=== PATIENT | male | born 1970 | race Caucasian/White ===

== ENCOUNTER 2022-12-24 07:07 | Day surgery (SDC) | payer OTHER ==
[~2022-12-24] VITALS: Ht 180.3 cm; Wt 80.7 kg
[2022-12-24 11:22] VITALS: BP 97/59
== END 2022-12-24 11:04 | disposition home or self-care (01) | DRG 951 ==
LOC: PO 07:07 → ORM 07:07 → ENDO 07:07 → ORM 07:15 → ENDO 09:00
PROVIDERS: ATTEND Surgery
PROC: 0DJD8ZZ Inspection of Lower Intestinal Tract, Via Natural or Artificial Opening Endoscopic (ICD-10-PCS; principal; 2022-12-24)
DX: Z12.11 Encounter for screening for malignant neoplasm of colon (principal); K64.8 Other hemorrhoids